=== PATIENT | female | born 1960 | race Caucasian/White ===

== ENCOUNTER 2017-08-02 09:13 | Day surgery (SDC) | END 2017-08-02 14:12 | disposition home or self-care (01) ==

== ENCOUNTER 2017-09-30 09:30 | Inpatient (IN) | END 2017-10-05 16:00 | disposition home or self-care (01) | DRG 331 ==

== ENCOUNTER 2017-10-10 14:49 | Outpatient (CLI) | END 2017-10-10 15:46 | disposition home or self-care (01) ==